=== PATIENT | female | born 1980 | race Caucasian/White ===

== ENCOUNTER 2018-05-23 04:39 | Outpatient (CLI) | payer SELFPAY | END 2018-05-23 04:40 | disposition critical access hospital (66) | LOC: EMS 04:39 | PROVIDERS: ATTEND Surgery | DX: R52 Pain, unspecified (principal) | CPT/HCPCS: A0425; A0429 ==

== ENCOUNTER 2018-05-23 05:02 | Emergency (ER) | payer OTHER ==
[2018-05-23] MEDS ORDERED: OLANZapine 10 MG VIAL IM STA ×2 (05:24→05:27)
[2018-05-23] MEDS ORDERED: SODIUM CHLORIDE 0.9% 1,000 ML IV STA (05:25)
--- NOTE | 2018-05-23 07:02 | ED Physician Documentation ---
<Lenny Riggs - Last Filed: 05/23/18 20:10> History of Present Illness - Stated complaint Stated Complaint: ETOH - Chief complaint Chief Complaint: General - History obtained from History obtained from: Patient (Limited due to intoxication and uncooperative), EMS - History of Present Illness Timing: Today Improved by: nothing Worsened by: no exacerbating factors - Additonal information Additional information: BIBA for intoxication. Patient says she called 911 herself because she felt that she drank too much alcohol. She is yelling and combative at times. She requires restraints early in ED stay due to escalating combative behavior that did not improve despite multiple attempts by ED staff and myself to deescalate situation (explained to patient that she needs to not yell and not be aggressive and combative). Review of Systems Unable to obtain: Intoxicated, Uncooperative PD PAST MEDICAL HISTORY - Past Medical History Past Medical History: Yes Cardiovascular: Hypertension GI: GERD - Past Surgical History Past Surgical History: Yes HEENT: Tonsil/Adenoidectomy - Present Medications Home Medications: Ambulatory Orders Medication Instructions Recorded Confirmed Esomeprazole Magnesium [Nexium] 20 mg PO DAILY 04/24/14 11/27/15 Escitalopram Oxalate [Lexapro] 20 mg PO DAILY 07/06/14 11/27/15 Zolmitriptan [Zomig] 2.5 mg PO DAILY 07/06/14 11/27/15 chlordiazePOXIDE [Librium] 25 - 50 mg PO Q6H PRN #20 capsule 05/23/18 - Allergies Allergies/Adverse Reactions: Allergies Allergy/AdvReac Type Severity Reaction Status Date / Time No Known Drug Allergies Allergy Verified 11/27/15 01:53 - Social History Does the pt smoke?: No Smoking Status: Never smoker Does the pt drink ETOH?: No Does the pt have substance abuse?: No - Immunizations Immunizations are current?: Yes - POLST Patient has POLST: No PD ED PE NORMAL - Vitals Vital signs reviewed: Yes - General General: Well developed/nourished, Other (awake, alert. will not give answers to orientation questions. slurred speech, thrashing and flailing) - HEENT HEENT: Atraumatic, PERRL, EOMI, Moist mucous membranes - Cardiac Cardiac: No murmur - Respiratory Respiratory: No respiratory distress, Clear bilaterally - Abdomen Abdomen: Soft, Non tender - Derm Derm: Normal color, Warm and dry - Extremities Extremities: Normal ROM s pain PD ED PE EXPANDED - Cardiac Cardiac: Regular Rate, Tachy PD MEDICAL DECISION MAKING - ED course Complexity details: reviewed results, re-evaluated patient, considered differential, d/w patient ED course: required restraints and given zyprexa 10mg IM. Care of patient turned over to Dr. Salcedo at 8 AM pending improvement in mental status as her alcohol metabolizes. Departure - Departure Disposition: 01 Home, Self Care Clinical Impression: Acute alcohol intoxication Qualifiers: Complication of substance-induced condition: with unspecified complication Qualified Code(s): F10.929 - Alcohol use, unspecified with intoxication, unspecified Condition: Stable Instructions: ED Withdrawal Alcohol Prescriptions: chlordiazePOXIDE [Librium] 25 - 50 mg PO Q6H PRN #20 capsule PRN Reason: Alcohol Withdrawal Comments: He can use Librium as prescribed as needed for alcohol withdrawal symptoms. Drink plenty of fluids. Follow-up with your primary physician upon return to [place]. Return to the emergency department if you develop persistent vomiting, or otherwise worsening withdrawal symptoms. Discharge Date/Time: 05/23/18 17:30 <Gabriel Salcedo - Last Filed: 05/24/18 10:29> Results - Vitals Vitals: Vital Signs - 24 hr 05/23/18 05/23/18 05/23/18 11:14 13:23 16:16 Heart Rate 86 95 99 Respiratory 16 18 19 Rate Blood Pressure 102/66 101/62 137/94 H O2 Saturation 100 100 100 05/23/18 17:30 Heart Rate 72 Respiratory 18 Rate Blood Pressure 136/70 H O2 Saturation 98 Oxygen O2 Source Room air - Labs Labs: Laboratory Tests 05/23/18 05/23/18 05/23/18 07:08 07:08 07:08 WBC 3.6 L RBC 5.02 Hgb 14.2 Hct 42.6 MCV 84.9 MCH 28.2 MCHC 33.2 RDW 14.7 Plt Count 141 MPV 7.6 L Neut # (Auto) 2.2 Lymph # (Auto) 1.0 L [place] # (Auto) 0.2 Eos # (Auto) 0.1 Baso # (Auto) 0.0 Absolute Nucleated RBC 0.00 Nucleated RBC % 0.0 Sodium 142 Potassium 3.5 Chloride 102 Carbon Dioxide 19 L Anion Gap 21.0 H BUN 13 Creatinine 0.7 Estimated GFR (MDRD) 93 Glucose 93 Calcium 8.7 Total Bilirubin 0.5 AST 47 H ALT 25 Alkaline Phosphatase 54 Total Protein 8.4 H Albumin 4.8 Globulin 3.6 Albumin/Globulin Ratio 1.3 Lipase 42 HCG, Quant < 0.60 Urine Color Urine Clarity Urine pH Ur Specific [place] Urine Protein Urine Glucose (UA) Urine Ketones Urine Occult Blood Urine Nitrite Urine Bilirubin Urine Urobilinogen Ur Leukocyte Esterase Urine RBC Urine WBC Ur Squamous Epith Cells Urine Bacteria Ur Microscopic Review Urine Culture Comments Salicylates < 6.0 Urine Opiates Screen Ur Oxycodone Screen Urine Methadone Screen Ur Propoxyphene Screen Acetaminophen < 10 L Ur Barbiturates Screen Ur Tricyclics Screen Ur Phencyclidine Scrn Ur Amphetamine Screen U Methamphetamines Scrn U Benzodiazepines Scrn Urine Cocaine Screen U Cannabinoids Screen Ethyl Alcohol 456.8 05/23/18 07:35 WBC RBC Hgb Hct MCV MCH MCHC RDW Plt Count MPV Neut # (Auto) Lymph # (Auto) [place] # (Auto) Eos # (Auto) Baso # (Auto) Absolute Nucleated RBC Nucleated RBC % Sodium Potassium Chloride Carbon Dioxide Anion Gap BUN Creatinine Estimated GFR (MDRD) Glucose Calcium Total Bilirubin AST ALT Alkaline Phosphatase Total Protein Albumin Globulin Albumin/Globulin Ratio Lipase HCG, Quant Urine Color YELLOW Urine Clarity CLEAR Urine pH 6.0 Ur Specific [place] <=1.005 Urine Protein 30 H Urine Glucose (UA) NEGATIVE Urine Ketones NEGATIVE Urine Occult Blood LARGE H Urine Nitrite NEGATIVE Urine Bilirubin NEGATIVE Urine Urobilinogen 0.2 (NORMAL) Ur Leukocyte Esterase NEGATIVE Urine RBC 0-5 Urine WBC 4-5 Ur Squamous Epith Cells MOD Squamous H Urine Bacteria Few Ur Microscopic Review INDICATED Urine Culture Comments NOT INDICATED Salicylates Urine Opiates Screen NEGATIVE Ur Oxycodone Screen NEGATIVE Urine Methadone Screen NEGATIVE Ur Propoxyphene Screen NEGATIVE Acetaminophen Ur Barbiturates Screen NEGATIVE Ur Tricyclics Screen NEGATIVE Ur Phencyclidine Scrn NEGATIVE Ur Amphetamine Screen NEGATIVE U Methamphetamines Scrn NEGATIVE U Benzodiazepines Scrn NEGATIVE Urine Cocaine Screen NEGATIVE U Cannabinoids Screen NEGATIVE Ethyl Alcohol PD MEDICAL DECISION MAKING - ED course ED course: At change of shift the patient's care was turned over to [place] pending metabolism of alcohol. Throughout the course of the day she became more and more cogni zant, and responded appropriately to questions. She currently lives in [place] and is on [facility] for another 2 days before she returns. She has been in alcohol treatment 3 times in the past, and continues to attempt sobriety. 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 At the time of discharge she is fully alert and demonstrates ability to ambulate with a steady gait. She is being discharged with prescription for Librium. I discussed with her potentially worrisome signs or symptoms that should prompt reevaluation in the emergency department.
[2018-05-23 07:14] LABS: EOSINOPHILS # (AUTO) 0.1 10^3/uL (0.0-0.7); EOSINOPHILS % (AUTO) 2.2 %; HGB - HEMOGLOBIN 14.2 g/dL (12.0-16.0); LYMPHOCYTES % (AUTO) 28.7 %; MEAN CORPUSCULAR HEMOGLOBIN 28.2 pg (27.0-31.0); MEAN CORPUSCULAR HGB CONC 33.2 g/dL (32.0-36.0); MEAN CORPUSCULAR VOLUME 84.9 fL (81.0-99.0); MEAN PLATELET VOLUME 7.6 fL (7.9-10.8); MONOCYTES # (AUTO) 0.2 10^3/uL (0.0-1.0); MONOCYTES % (AUTO) 6.8 %; NEUTROPHILS # (AUTO) 2.2 10^3/uL (1.5-6.6); NEUTROPHILS % (AUTO) 61.3 %; PLT - PLATELET COUNT 141 10^3/uL (130-450); RED BLOOD COUNT 5.02 10^6/uL (4.20-5.40); RED CELL DISTRIBUTION WIDTH 14.7 % (12.0-15.0); WHITE BLOOD COUNT 3.6 x10^3/uL (4.8-10.8)
[2018-05-23 07:32] LABS: ACETAMINOPHEN < 10 ug/mL (10-30); ALBUMIN 4.8 g/dL (3.2-5.5); ALBUMIN/GLOBULIN RATIO 1.3 (1.0-2.2); ALKALINE PHOSPHATASE 54 IU/L (42-121); ALT ALANINE AMINOTRANSFERASE 25 IU/L (10-60); AST ASPARTATE AMINOTRANSFERASE 47 IU/L (10-42); BILIRUBIN,TOTAL 0.5 mg/dL (0.2-1.0); BUN - BLOOD UREA NITROGEN 13 mg/dL (6-20); CALCIUM 8.7 mg/dL (8.5-10.3); CARBON DIOXIDE - CO2 19 mmol/L (21-32); CHLORIDE 102 mmol/L (101-111); CREATININE 0.7 mg/dL (0.4-1.0); GFR - MDRD 93 (>89); GLUCOSE 93 mg/dL (70-100); LIPASE 42 U/L (22-51); SALICYLATE < 6.0 mg/dL; SODIUM 142 mmol/L (135-145); TOTAL PROTEIN 8.4 g/dL (6.7-8.2)
[2018-05-23 07:50] LABS: MUDS CUTOFF CONCENTRATIONS CUTOFF CONC BELOW:
[2018-05-23 07:57] LABS: BILIRUBIN,URINE NEGATIVE (NEGATIVE); GLUCOSE, URINE (UA) NEGATIVE (NEGATIVE); KETONES,URINE (UA) NEGATIVE (NEGATIVE); LEUKOCYTE ESTERASE, URINE NEGATIVE (NEGATIVE); NITRITE,URINE NEGATIVE (NEGATIVE); OCCULT BLOOD,URINE LARGE (NEGATIVE); PROTEIN,URINE 30 mg/dL (NEGATIVE); UROBILINOGEN,URINE 0.2 (NORMAL) E.U./dL (NORMAL)
[2018-05-23 08:03] LABS: CLARITY,URINE CLEAR (CLEAR)
[2018-05-23 08:07] LABS: AMPHETAMINE SCREEN,URINE NEGATIVE (NEGATIVE); BENZODIAZEPINES SCREEN, URINE NEGATIVE (NEGATIVE); COCAINE SCREEN URINE NEGATIVE (NEGATIVE); METHADONE SCREEN, URINE NEGATIVE (NEGATIVE); METHAMPHETAMINES SCREEN, URINE NEGATIVE (NEGATIVE); OPIATE SCREEN, URINE NEGATIVE (NEGATIVE); OXYCODONE SCREEN, URINE NEGATIVE (NEGATIVE); PROPOXYPHENE SCREEN, URINE NEGATIVE (NEGATIVE); TRICYCLIC ANTIDEPRESSANT,URINE NEGATIVE (NEGATIVE)
[2018-05-23 08:20] LABS: RBC,URINE 0-5 /HPF (0-5); SQUAMOUS EPITHELIAL CELL,UR MOD Squamous (<= Few)
[2018-05-23 08:21] LABS: BACTERIA,URINE Few /HPF (None Seen)
[2018-05-23] MEDS ORDERED: chlordiazePOXIDE 25 MG CAPSULE PO STA (16:42)
[2018-05-23] MEDS ORDERED: chlordiazePOXIDE 25 MG CAPSULE PO ONE (17:09)
[2018-05-23 17:44] VITALS: BP 136/70
== END 2018-05-23 17:30 | disposition home or self-care (01) ==
LOC: EDUNIT# → ED 05:02
DX: F10.120 Alcohol abuse with intoxication, uncomplicated (principal); I10 Essential (primary) hypertension
CPT/HCPCS: 36415; 80053; 80320; 80329; 81001; 83690; 84702; 85025; 96360; 96361; 96372; 99283; 99285; A9270; 80306; 80307; 81003; 87086